=== PATIENT | male | born 1975 | race Caucasian/White ===

== ENCOUNTER 2017-01-25 14:42 | Inpatient (IN) | payer BC, OTHER ==
[~2017-01-25] VITALS: Ht 175.3 cm; Wt 77.1 kg
--- NOTE | 2017-01-25 22:50 | NUR ---
ADMISSION NOTE Ht: 5'9 Wt: 170 lbs WS: T: 98'7; BP: 134/80; HR: 69; RR: 18; RA O2Sat: 100%; Pain level: 5/10 9 Generalized bones and muscles aches, headache). Patient is a 41 year old male admitted to [facility] fn 01/25/17 at 22:50 for Alcohol Withdrawal under medical supervision. , placed on PRN Ativan taper on , and on 5 day Ativan taper starting on 01/26/17. NKA, REGULAR DIET, FULL CODE, FALL AND SEIZURES PRECAUTIONS. No Seizures History. Patient is alert and oriented x4, speech soft and clear, stable gait. CIWA 8. Patient presents with mild anxiety, nervousness, agitation, depression, tremors that can felt, sweating, restlessness. Patient denies N/V, and diarrhea. Patient said, that he had SI/HI 01/23/17. No history of attempt. Doctor Carlos Beckford MD aware. Past Medical History: Anxiety, Depression, Alcohol use, Tobacco use. No PCP. Substance Use: Alcohol: " Started use since 18 years old. Sober from 2011 - 2014. Recently using 12-13 Big Bottles of Beer daily. Last used on 01/24/17". Methamphetamine (smoking): " since 22 years old. Recently - "5 bowls" - daily. Last dosage of 5 bowls on 01/23/17"."5/". Xanax: "Starting on 2006. Recently using 5-6 bars daily. Last dosage was 2 bars on 01/24/17". Patient denies past hospitalizations/treatments. Patient attended AA. Last time was on 01/12/17. Upon initial assessment VS WNL. Patient c/o bones and muscles aches, and headache. Breathing is unlabored and even. Patient denies SOB, and chest pain. Lung Sounds are clear Heart Rate is regular. No murmurs noted by auscultation. BS is active in all x4 quadrants. Last BM was on 01/24/17. Skin is intact, warm and moist by touch. Patient has laceration on Right index finger. No redness, no open wounds. Patient has laceration on the nose. No rudeness, no open wound. Patient was oriented on the floor and in his room. Education was provided with hand out printed and verbal for hand washing techniques, for safety, for smoking cessations, for alcohol withdrawal s/s. Patient return his knowledge by verbalizing understanding. Doctor Carlos Beckford MD notified for patient condition. Waiting order. All needs met. Safety measures in the place by hospital policy: Call light within reach, Bed in the lowest position and locked, padded rails up x2. Will continue to monitor closely. Addendum: 01/26/17 at 0443 by KASANDRA MATA RN VS. No redness.
[2017-01-25 23:29] LABS: *AMPHETAMINE, URINE POSITIVE (NEGATIVE); *BARBITURATE, URINE NEGATIVE (NEGATIVE); *CANNABINOID, URINE NEGATIVE (NEGATIVE); *COCCAINE, URINE NEGATIVE (NEGATIVE); *OPIATE, URINE NEGATIVE (NEGATIVE); *PHENCYCLIDINE SCREEN,URINE NEGATIVE (NEGATIVE)
[2017-01-25] MEDS ORDERED: CLONIDINE HCL 0.1 MG TABLET PO PRN (23:30)
[2017-01-25] MEDS ORDERED: ONDANSETRON 4 MG/2 ML VIAL IM PRN (23:30)
[2017-01-25] MEDS ORDERED: ONDANSETRON ODT 4 MG TAB.RAPDIS SL PRN (23:30)
[2017-01-25] MEDS ORDERED: MAG HYDROX/AL HYDROX/SIMETH 30 ML LIQUID UDC PO PRN (23:30)
[2017-01-25] MEDS ORDERED: LORAZEPAM 2 MG/1 ML VIAL IM PRN (23:30)
[2017-01-25] MEDS ORDERED: MIRALAX 17 GM POWD.PACK PO PRN (23:30)
[2017-01-25] MEDS ORDERED: ACETAMINOPHEN 325 MG TABLET PO PRN (23:30)
[2017-01-25] MEDS ORDERED: DICYCLOMINE HCL 20 MG TABLET PO PRN (23:30)
[2017-01-25] MEDS ORDERED: IBUPROFEN 600 MG TABLET PO PRN (23:30)
[2017-01-25] MEDS ORDERED: LORAZEPAM 1 MG TABLET PO PRN ×2 (23:30)
[2017-01-25] MEDS ORDERED: LOPERAMIDE HCL 2 MG CAPSULE PO PRN ×2 (23:30)
[2017-01-25] MEDS ORDERED: MAGNESIUM HYDROXIDE 30 ML LIQUID UDC PO PRN (23:30)
[2017-01-25] MEDS: diphenhydrAMINE 50 MG CAPSULE PO PRN (23:45)
--- NOTE | 2017-01-25 23:45 | NUR ---
PRN ATIVAN, PRN BENADRYL, PRN TYLENOL ADMINISTRATION Patient c/o increased anxiety, headache 5/10, and insomnia. Patient was assessed. CIWA 8. PRN Ativan PO, PRN Benadryl PO, PRN Tylenol PO was discussed with patient. Patient was educated for actions, adverse reactions, and side effects of Ativan , Benadryl , and Tylenol. Patient return his knowledge back by verbalizing understanding. PRN Ativan PO, PRN Benadryl PO, PRN Tylenol PO administrated as ordered. Patient tolerated well. Safety measures by hospital policy: Call light within reach; Bed in lowest position and locked; padded rails up x2. All needs met. Will continue to monitor closely.
[2017-01-25] MEDS ORDERED: ACETAMINOPHEN 325 MG TABLET ONE (23:47)
[2017-01-25] MEDS ORDERED: diphenhydrAMINE 50 MG CAPSULE ONE (23:48)
[2017-01-25] MEDS ORDERED: LORAZEPAM 1 MG TABLET ONE (23:48)
[2017-01-26] VITALS: BP 121/75
[2017-01-26] MEDS ORDERED: THIAMINE HCL 200 MG/2 ML VIAL IM ONE
--- NOTE | 2017-01-26 00:45 | NUR ---
RE-ASSESSMENT Patient sleeping on his right side. RR 12. Breathing is unlabored and even. PRN Ativan PO, PRN Benadryl PO, PRN Tylenol PO were effective. Safety measures in the place by hospital policy: Call light within reach; Bed in lowest position and locked; padded rails up x2. All needs met. Will continue to monitor closely.
[2017-01-26] MEDS ORDERED: CLON1TAB4 PO (01:53)
[2017-01-26] MEDS ORDERED: ESCI10TA55 PO (01:53)
[2017-01-26] MEDS ORDERED: NICO1PAT44 TD (01:53)
[2017-01-26] MEDS ORDERED: TOLN15SO TP (01:53)
[2017-01-26 04:00] VITALS: BP 111/68
--- NOTE | 2017-01-26 07:05 | NUR ---
Start of Shift Endorsement received from nightshift nurse. Pt is a 41 y/o male admitted for alcohol, xanax and methamphetamine dependence. Pt has been placed on a 5 day Ativan taper. Pt is tolerating the taper well AEB CIWA 3 at 0400. Pt received PRN ativan, Tylenol and Benadryl. Pt reports sleeping 5 hours. VS WNL. Full Code. PT is alert and oriented x4. Pt is in STABLE condition at this time. Remains compliant with medication and diet regimen. All needs have been met, All safety measures in place per hospital policy. Bed in lowest position, side rails up x2, call-light within reach. Will continue to monitor
--- NOTE | 2017-01-26 07:09 | NUR ---
END OF SHIFT NOTE Patient is a 41 year old male admitted to [facility] fn 01/25/17 at 22:50 for Alcohol Withdrawal under medical supervision. , placed on 5 day Ativan taper starting on 01/26/17. NKA, Regular Diet, Full Code, Fall and Seizures Precautions. No Seizures History. Patient is alert and oriented x4, speech soft and clear, stable gait. CIWA decreased from 8 to 3: Patient presented with anxiety, nervousness, agitation, depression, tremors that can felt, sweating, restlessness. Patient denies N/V, and diarrhea. Patient said, that he had SI/HI 01/23/17. No history of attempt. Doctor Carlos Beckford MD aware. Past Medical History: Anxiety, Depression, Alcohol use, Tobacco use. No PCP. Substance Use: Alcohol: "Since 1993. Sober : 2011 - 2014. Recently : " 12-13 Big Bottles of Beer daily. Last used on 01/24/17". Methamphetamine (smoking): " Since 1997. Recently - "5 bowls" - daily. Last dosage of 5 bowls' on 01/23/17". Xanax: "Since 2006. Recently : 5-6 bars daily. Last dosage was 2 bars on 01/24/17". Patient denies past hospitalizations/treatments. Patient's attended AA. Last time was on 01/12/17. VS WNL. Skin is intact, warm and moist by touch. Patient has laceration on Right index finger. No redness, no open wounds. Patient has laceration on the nose. No redness, no open wound. PRN Ativan PO, PRN Benadryl PO, and PRN Tylenol PO were effective. Patent slept 5 hours; Intake 250 ml; Urine x1. All needs met. Safety measures in the place by hospital policy: Call light within reach, Bed in the lowest position and locked, padded rails up x2 . Patient endorsed to day shift nurse. SBAR report given.
[2017-01-26 08:00] VITALS: BP 114/67
[2017-01-26] MEDS: LORAZEPAM 1 MG TABLET PO SCH ×4 (08:23→21:04)
[2017-01-26] MEDS: THIAMINE HCL 100 MG TABLET PO SCH (08:23)
[2017-01-26] MEDS: FOLIC ACID 1 MG TABLET PO SCH (08:23)
[2017-01-26] MEDS: MULTIVITAMINS,THERAPEUTIC TABLET PO SCH (08:24)
[2017-01-26] MEDS ORDERED: TUBERCULIN,PURIF.PROT.DERIV. 5 TU/0.1 ML TEST ID ONE (09:00)
[2017-01-26 10:09] LABS: BASOPHILS % (AUTO) 0.6 % (0.0-2.0); EOSINOPHILS # (AUTO) 0.2 K/uL (0.0-0.7); HEMATOCRIT 45.2 % (36.7-47.1); HEMOGLOBIN 15.7 g/dL (12.5-16.3); LYMPHOCYTES # (AUTO) 1.8 K/uL (20.0-40.0); LYMPHOCYTES % (AUTO) 40.6 % (20.5-51.5); MEAN CORPUSCULAR HEMOGLOBIN 31.4 uug (23.8-33.4); MEAN CORPUSCULAR HGB CONC 35 g/dL (32.5-36.3); MEAN CORPUSCULAR VOLUME 90.7 fL (73.0-96.2); MONOCYTES # (AUTO) 0.5 K/uL (2.0-10.0); MONOCYTES % (AUTO) 10.4 % (0.0-11.0); NEUTROPHILS # (AUTO) 1.9 K/uL (1.8-8.9); NEUTROPHILS % (AUTO) 44.4 % (38.5-71.5); PLATELET COUNT (AUTO) 220 K/uL (152-348); RED BLOOD CELL COUNT(AUTO) 4.99 MIL/uL (4.06-5.63); RED CELL DISTRIBUTION WIDTH 12.5 % (12.1-16.2); WHITE BLOOD COUNT (AUTO) 4.4 K/uL (3.6-10.2)
[2017-01-26 10:11] LABS: ALANINE AMINOTRANSFERASE 33 U/L (16-63); ALBUMIN 3.8 g/dL (3.4-5.0); ALKALINE PHOSPHATASE 55 U/L (50-136); ASPARTATE AMINOTRANSFERASE 30 U/L (15-37); BILIRUBIN,TOTAL 0.8 mg/dL (0.2-1.0); CALCIUM 8.9 mg/dL (8.5-10.1); CARBON DIOXIDE 25 mmol/L (21-32); CHLORIDE 106 mmol/L (98-107); CREATININE 0.9 mg/dL (0.6-1.3); GFR 93 mL/min (>60); GLUCOSE 127 mg/dL (74-106); MAGNESIUM 2.3 mg/dL (1.8-2.4); POTASSIUM 3.6 mmol/L (3.5-5.1); SODIUM SERUM 140 mmol/L (136-145); TOTAL PROTEIN, SERUM 7.5 g/dL (6.4-8.2); UREA NITROGEN, BLOOD 12 mg/dL (7-18)
[2017-01-26 10:16] LABS: THYROID STIMULATING HORMONE 1.725 mIU/mL (0.358-3.740)
[2017-01-26 10:19] LABS: ETHANOL < 3 MG/DL (0-0)
[2017-01-26 10:41] LABS: HIV-1 p24 ANTIGEN NON REACTIVE (NONREACTIVE); HIV-1/2 ANTIBODY NON REACTIVE (NONREACTIVE)
[2017-01-26 12:00] VITALS: BP 128/79
[2017-01-26 16:00] VITALS: BP 122/82
[2017-01-26] MEDS: NEOMY/BACITRAC/POLYMI OINT 28.35 GM TUBE TOP SCH (17:33)
--- NOTE | 2017-01-26 18:54 | NUR ---
End of Shift Endorsement given to nightshift nurse. Pt is a 41 y/o male admitted for alcohol, xanax and methamphetamine dependence. Pt has been placed on a 5 day Ativan taper. Pt is tolerating the taper well AEB CIWA 4 at 1600. Pt did not receive any PRN medications. Encouraged pt to express his feelings regarding the suicide ideations he had expressed during admission. PT denies any and all suicide ideations, reports wanting to succeed in the detox program and become sober. Pt was evaluated by Dr. Solis and the therapist. Pt did not participate in groups or activities, stating that he just wanted to rest and catch up on sleep. Triple antibiotic was administered to the pt to help treat the blister and his 3rd finger on the right hand. Intake: 750ml, Void x1, BM x0. VS WNL. Full Code. PT is alert and oriented x4. Pt is in STABLE condition at this time. Remains compliant with medication and diet regimen. All needs have been met, All safety measures in place per hospital policy. Bed in lowest position, side rails up x2, call-light within reach. Will continue to monitor
--- NOTE | 2017-01-26 18:54 | NUR ---
START SHIFT NOTE Patient is a 41 year old male admitted to [facility] fn 01/25/17 at 22:50 for Alcohol Withdrawal under medical supervision. , placed on 5 day Ativan taper starting on 01/26/17. NKA, REGULAR DIET, FULL CODE, FALL AND SEIZURES PRECAUTIONS. No Seizures History. Past Medical History: Anxiety, Depression, Alcohol use, Tobacco use. Substance Use: Alcohol: " Started use since 18 years old. Sober' from 2011 - 2014. Recently using 12-13 Big Bottles of Beer daily. Last used on 01/24/17". Methamphetamine (smoking): " since 22 years old. Recently - "5 bowls" - daily. Last dosage of 5 bowls on 01/23/17"."02/07". Xanax: "Starting on 2006. Recently using 5-6 bars daily. Last dosage was 2 bars on 01/24/17". Patient denies past hospitalizations/treatments. Patient attended AA. Last time was on 01/12/17. Upon endorsement/assessment: Patient is alert and oriented x4, speech soft and clear, stable gait. CIWA 5. Patient presents with mild anxiety, nervousness, agitation, depression, mild headache, tremors that can felt, sweating, restlessness. Patient denies N/V, and diarrhea. Patient denies SI/HI. VS WNL. Patient Breathing is unlabored and even. Patient denies SOB, and chest pain. Lung Sounds are clear Heart Rate is regular. No murmurs noted by auscultation. BS is active in all x4 quadrants. Last BM was on 01/26/17. Skin is intact, warm and moist by touch. Patient has healed laceration on Right index finger. No redness, no open wounds. Patient has healed laceration on the nose. No redness, no open wound. All needs met. Safety measures in the place by hospital policy: Call light within reach, Bed in the lowest position and locked, padded rails up x2. Will continue to monitor closely.
[2017-01-26 20:00] VITALS: BP 127/78
[2017-01-26] MEDS: ESCITALOPRAM OXALATE 10 MG TABLET PO SCH (21:04)
[2017-01-26] MEDS: GABAPENTIN 300 MG CAPSULE PO SCH (21:04)
[2017-01-27] VITALS: BP 109/51
[2017-01-27 04:00] VITALS: BP 109/56
--- NOTE | 2017-01-27 06:59 | NUR ---
END OF SHIFT NOTE Patient is a 41 year old male admitted to [facility] fn 01/25/17 at 22:50 for Alcohol Withdrawal under medical supervision. , placed on 5 day Ativan taper starting on 01/26/17. NKA, Regular Diet, Full Code, Fall and Seizures Precautions. No Seizures History. Withdrawal symptoms notably improved. CIWA decreased from 5 at 20:00 to 4 at 00:00. Patient presented with anxiety, agitation, tremors that can felt, bone and muscles aches, stomach cramps, sweating, and headache. Patient denies N/V, and diarrhea. Patient denies SI/HI. Vital Sings' stable. Skin is intact, warm and moist by touch. Patient has healed laceration on Right Index finger. No redness, no open wounds. Patient has healed laceration on his nose. No redness, no open wound. Patient encouraged to drink and provided with PO fluids. Patient encouraged to attend activities. Patient remains compliant with therapeutic plan, medications and diet regime Patient slept 8 hours; Intake 2000 ml; Voided x2. All needs met. Safety measures in the place by hospital policy: Call light within reach, Bed in the lowest position and locked, padded rails up x2. Patient endorsed to day shift nurse in stable condition. SBAR report given.
--- NOTE | 2017-01-27 07:44 | NUR ---
START OF SHIFT Received pt AOx4 this AM. Pt states he feels "anxious and a little discombobulated." Pt on 5 day Ativan taper. No PRNs needed per night nurse. Pt slept 9 hours and he states he "was able to sleep well last night after taking the medications." Last COWS 3 CIWA 4 per night nurse. Encouraged pt to attend group and activities today. Encouraged increase in fluid intake to help facilitate detox. Will administer AM medications. Will provide safe and supportive environment and continue to monitor.
[2017-01-27 08:00] VITALS: BP 109/73
[2017-01-27] MEDS: FOLIC ACID 1 MG TABLET PO SCH (08:16)
[2017-01-27] MEDS: THIAMINE HCL 100 MG TABLET PO SCH (08:16)
[2017-01-27] MEDS: MULTIVITAMINS,THERAPEUTIC TABLET PO SCH (08:16)
[2017-01-27] MEDS: LORAZEPAM 1 MG TABLET PO SCH ×3 (08:16→21:02)
[2017-01-27] MEDS: GABAPENTIN 300 MG CAPSULE PO SCH ×2 (08:16→21:02)
[2017-01-27] MEDS: NEOMY/BACITRAC/POLYMI OINT 28.35 GM TUBE TOP SCH ×2 (08:19→16:22)
[2017-01-27 12:00] VITALS: BP 130/76
[2017-01-27 14:06] LABS: HCV AB <0.1 s/co ratio (0.0-0.9); HEPATITIS B CORE AB, IgM Negative (Negative); HEPATITIS B SURFACE AG Negative (Negative)
[2017-01-27 16:00] VITALS: BP 126/68
--- NOTE | 2017-01-27 18:35 | NUR ---
END OF SHIFT Pt continues on 5 day Ativan taper and tolerating well. No PRNs needed during shift. Pt isolated self in room most of shift and slept a lot of the day. Last CIWA 4 COWS 3. Pt presents restless and mildly anxious. Pt continues on seizure and fall precautions with no hx of seizures. Pt is compliant with medications and tx plan. All needs have been met. All safety measures in place. Bed locked and in lowest position with call delgadillo within reach. Will endorse to night nurse.
--- NOTE | 2017-01-27 19:30 | NUR ---
START OF SHIFT-- Pt is a 41 y/o male admitted for alcohol, xanax and methamphetamine dependence. Pt has been placed on a 5 day Ativan taper. Pt is tolerating the taper well ,no A/R reported.VS WNL. Full Code. PT is alert and oriented x 4.PMH of anxiety and depression. NKA. Pt is in STABLE condition at this time. Remains compliant with medication and diet regimen. All needs have been met, All safety measures in place per hospital policy. Bed in lowest position, side rails up x2, call-light within reach. Will continue to monitor.
[2017-01-27 20:00] VITALS: BP 124/74
--- NOTE | 2017-01-27 20:15 | NUR ---
START OF SHIFT Received report from day shift nurse. Pt attended a group meeting and returned to his room after. He is a 41 yo male admitted to [facility] on 01/25 for ETOH withdrawal. He is A&O x4 and ambulatory. NKA, full code, regular diet. He has a PMH of anxiety and depression. On admission he reported drinking 12-13 bottles of beer per day, Xanax 5-6 bars per day, clonazepam 1 mg per day, and methamphetamine 5 bowls per day. Pt started a 5 day Ativan taper on 01/26. He has a flat affect, moist skin, and reports feeling anxious. Taper is due tonight. Fall and seizure precautions in place. Bed is down with call light in reach. Addendum: 01/29/17 at 0345 by CHULA RODRÍGUEZ RN Incorrect date of note. Note documented with correct date and time.
[2017-01-27] MEDS: ESCITALOPRAM OXALATE 10 MG TABLET PO SCH (21:03)
[2017-01-27] MEDS: diphenhydrAMINE 50 MG CAPSULE PO PRN (23:30)
--- NOTE | 2017-01-27 23:31 | NUR ---
PRN MED-- PRN BENADRYL GIVEN ORDERED FOR C/O INSOMNIA PER PT REQUEST.WILL MONITOR.
[2017-01-28] VITALS: BP 122/68
--- NOTE | 2017-01-28 00:30 | NUR ---
PRN EFFECTIVE.PT SEEN RESTING IN BED WITH EYES CLOSED.NO S/S OF DISTRESS NOTED,WILL BE MONITORED FOR SAFETY.
[2017-01-28 04:00] VITALS: BP 109/70
--- NOTE | 2017-01-28 06:48 | NUR ---
END OF SHIFT-- Pt is a 41 y/o male admitted for alcohol, xanax and methamphetamine dependence. Pt has been placed on a 5 day Ativan taper. Pt is tolerating the taper well ,no A/R reported.VS WNL. Full Code. PT is alert and oriented x4.PMH of anxiety and depression. NKA. Pt is in STABLE condition at this time. Remains compliant with medication and diet regimen. All needs have been met, All safety measures in place per hospital policy.PRN Benadryl was given for insomnia; pt slept 9 hrs; fluid intake was 1000 mls,voided x 2. Bed in lowest position, side rails up x2, call-light within reach. Will endorse care to day shift.
--- NOTE | 2017-01-28 07:42 | NUR ---
START OF SHIFT Received pt AOx4 this AM. Pt presents with guarded affect and he appears restless upon talking to him. Pt states he "slept pretty good last night." Pt on 5 day Ativan taper. PRN Benadryl given last shift with effectiveness per night nurse. Pt slept 9 hours. Last COWS 2 CIWA 2 per night nurse. Encouraged pt to attend group and activities today. Encouraged increase in fluid intake to help facilitate detox. Will administer AM medications. Will provide safe and supportive environment and continue to monitor.
[2017-01-28 08:00] VITALS: BP 122/66
[2017-01-28] MEDS: MULTIVITAMINS,THERAPEUTIC TABLET PO SCH (08:47)
[2017-01-28] MEDS: FOLIC ACID 1 MG TABLET PO SCH (08:47)
[2017-01-28] MEDS: THIAMINE HCL 100 MG TABLET PO SCH (08:47)
[2017-01-28] MEDS: NEOMY/BACITRAC/POLYMI OINT 28.35 GM TUBE TOP SCH ×2 (08:47→17:00)
[2017-01-28] MEDS: LORAZEPAM 1 MG TABLET PO SCH ×4 (08:47→21:30)
[2017-01-28] MEDS: GABAPENTIN 300 MG CAPSULE PO SCH ×2 (08:47→21:30)
[2017-01-28 12:00] VITALS: BP 119/68
[2017-01-28 16:00] VITALS: BP 133/85
--- NOTE | 2017-01-28 18:55 | NUR ---
END OF SHIFT Pt continues on 5 day Ativan taper and tolerating well. No PRNs needed during shift. Pt isolated self in room most of shift. Last CIWA 2 COWS 2. Pt presents restless and mildly anxious. Pt continues on seizure and fall precautions with no hx of seizures. Pt is compliant with medications and tx plan. Vital signs stable. All needs have been met. All safety measures in place. Bed locked and in lowest position with call delgadillo within reach. Will endorse to night nurse.
[2017-01-28 20:00] VITALS: BP 127/85
--- NOTE | 2017-01-28 20:15 | NUR ---
START OF SHIFT Received report from day shift nurse. Pt attended a group meeting and returned to his room after. He is a 41 yo male [facility] for ETOH withdrawal. He is A&O x4 and ambulatory. NKA, full code, regular diet. He has a PMH of anxiety and depression. On admission he reported drinking 12-13 bottles of beer per day, Xanax 5-6 bars per day, clonazepam 1 mg per day, and methamphetamine 5 bowls per day. Pt started a 5 day Ativan taper on 01/26. He has a flat affect, moist skin, and reports feeling anxious. Taper is due tonight. Fall and seizure precautions in place. Bed is down with call light in reach.
--- NOTE | 2017-01-28 20:32 | NUR ---
PRN Benadryl administration Pt reports inability to sleep. PRN Benadryl administered.
[2017-01-28] MEDS: ESCITALOPRAM OXALATE 10 MG TABLET PO SCH (21:30)
[2017-01-28] MEDS: diphenhydrAMINE 50 MG CAPSULE PO PRN (21:31)
--- NOTE | 2017-01-28 22:32 | NUR ---
PRN Benadryl reassessment PRN Benadryl effective. Pt is lying in bed resting with eyes closed. Respirations even and unlabored. Bed is down with call light in reach.
[2017-01-29] VITALS: BP 110/62
[2017-01-29 04:00] VITALS: BP 104/60
--- NOTE | 2017-01-29 07:11 | NUR ---
END OF SHIFT Report provided to day shift nurse. Pt is lying in bed resting. He is a 41 yo male admitted to [facility] on 01/25 for ETOH withdrawal. He is A&O x4 and ambulatory. Pt has NKA, is full code status, and on a regular diet. He has a PMH of anxiety and depression. On admission he reported drinking 12-13 bottles of beer per day, Xanax 5-6 bars per day, clonazepam 1 mg for one month, and methamphetamine 5 bowls per day. He started a 5 day Ativan taper on 01/26. Pt has a right index finger laceration and is receiving topical abx. PRN Benadryl administered for sleep. Last CIWA was 1. He drank 1300mL and slept for 8 hours. Safety measures in place.
[2017-01-29 08:00] VITALS: BP 108/69
--- NOTE | 2017-01-29 08:10 | NUR ---
START OF SHIFT Received pt AOx4 this AM. Pt presents with anxious mood. Pt states he "slept pretty good last night." Pt on 5 day Ativan taper. No PRns given per night nurse. Pt slept 8 hours. Last CIWA 3 per night nurse. Encouraged pt to attend group and activities today.Encouraged pt to shower today Encouraged increase in fluid intake to help facilitate detox. Will administer AM medications. Will provide safe and supportive environment and continue to monitor.
[2017-01-29] MEDS: FOLIC ACID 1 MG TABLET PO SCH (09:04)
[2017-01-29] MEDS: THIAMINE HCL 100 MG TABLET PO SCH (09:04)
[2017-01-29] MEDS: MULTIVITAMINS,THERAPEUTIC TABLET PO SCH (09:04)
[2017-01-29] MEDS: LORAZEPAM 1 MG TABLET PO SCH ×3 (09:04→20:49)
[2017-01-29] MEDS: GABAPENTIN 300 MG CAPSULE PO SCH ×3 (09:04→20:49)
[2017-01-29] MEDS: NEOMY/BACITRAC/POLYMI OINT 28.35 GM TUBE TOP SCH ×2 (09:04→16:47)
[2017-01-29 12:00] VITALS: BP 130/82
[2017-01-29 16:00] VITALS: BP 128/81
--- NOTE | 2017-01-29 18:35 | NUR ---
END OF SHIFT NOTE Pt continues on 5 day Ativan taper and tolerating well. No PRNs needed during shift. Pt had brighter mood and affect this shift. Pt attended groups today. Last CIWA 1. Pt continues on seizure and fall precautions with no hx of seizures. Pt is compliant with medications and tx plan. Vital signs stable. All needs have been met. All safety measures in place. Pt currently resting in bed with bed locked and in lowest position with call delgadillo within reach. Will endorse to night nurse.
[2017-01-29 20:00] VITALS: BP 126/70
--- NOTE | 2017-01-29 20:00 | NUR ---
START OF SHIFT Received report from day shift nurse. Pt attended a group meeting and returned to his room after. He is a 41 yo male admitted to [facility] on 01/25 for ETOH withdrawal. He is A&O x4 and ambulatory. NKA, full code, regular diet. He has a PMH of anxiety and depression. On admission he reported drinking 12-13 bottles of beer per day, Xanax 5-6 bars per day, clonazepam 1 mg per day, and methamphetamine 5 bowls per day. Pt started a 5 day Ativan taper on 01/26. He reports anxiety and has moist skin. Taper is due tonight. Fall and seizure precautions in place. Bed is down with call light in reach.
[2017-01-29] MEDS: ESCITALOPRAM OXALATE 10 MG TABLET PO SCH (20:49)
[2017-01-30] VITALS: BP 110/67
[2017-01-30] MEDS: diphenhydrAMINE 50 MG CAPSULE PO PRN (00:10)
--- NOTE | 2017-01-30 00:12 | NUR ---
PRN Benadryl administration Pt reports inability to sleep. PRN Benadryl administered.
--- NOTE | 2017-01-30 01:12 | NUR ---
PRN Benadryl reassessment PRN Benadryl effective. Pt is lying in bed resting with eyes closed. Respirations even and unlabored. Safety measures in place.
--- NOTE | 2017-01-30 04:00 | NUR ---
0400 Vital signs refused.CIWA deferred. Pt refused to be woken for 0400 vitals. Respirations even and unlabored. CIWA deferred as they are ordered Q4H while awake.
--- NOTE | 2017-01-30 07:20 | NUR ---
Start of Shift Report from night nurse: pt is a 41 y/o male her for Etoh r/t 12-13 bottles of beer/d, methamphetamine 5 bowel smoked, Benzo r/t Xanax 5-6 bars/d and Clonazepam 1mg PO/d; 5 day Ativan taper ordered. Pt is a full code, regular diet, NKA, fall and seizure precautions ordered. HHx: Anxiety, depression, relapse and smoker. V/S stable. Skin is not intact with right index finger laceration and topical Atbx ointment ordered. PRN Benadryl given last night for sleep. Last CIWA 3. Night nurse recommended to f/u with psychiatrist re: Celexa vs Lexapro medications. Pt is asleep in room. Will cont. to monitor the pt.
--- NOTE | 2017-01-30 07:25 | NUR ---
END OF SHIFT 3 Report provided to day shift nurse. Pt is lying in bed resting. He is a 41 [facility]. He is A&O x4 and ambulatory. NKA, full code, regular diet. He has a PMH of anxiety and depression. On admission he reported drinking 12-13 bottles of beer per day, Xanax 5-6 bars per day, clonazepam 1 mg per day, and methamphetamine 5 bowls per day. Pt started a 5 day Ativan taper on 01/26. He continues to have anxiety for which Ativan taper has been effective. PRN Benadryl administered for sleep. Last CIWA was 3. He drank 500mL and slept for 7 hours. Fall and seizure precautions in place. Bed is down with call light in reach.
[2017-01-30 08:00] VITALS: BP 107/61
[2017-01-30] MEDS: NICOTINE 21 MG/24HR PATCH TD SCH (09:00)
[2017-01-30] MEDS: GABAPENTIN 300 MG CAPSULE PO SCH ×3 (09:45→21:18)
[2017-01-30] MEDS: LORAZEPAM 1 MG TABLET PO SCH ×2 (09:45→21:18)
[2017-01-30] MEDS: THIAMINE HCL 100 MG TABLET PO SCH (09:45)
[2017-01-30] MEDS: NEOMY/BACITRAC/POLYMI OINT 28.35 GM TUBE TOP SCH ×2 (09:46→15:38)
[2017-01-30] MEDS: MULTIVITAMINS,THERAPEUTIC TABLET PO SCH (09:46)
[2017-01-30] MEDS: FOLIC ACID 1 MG TABLET PO SCH (09:46)
[2017-01-30 12:00] VITALS: BP 130/73
[2017-01-30] MEDS: HYDROXYZINE PAMOATE 25 MG CAPSULE PO PRN (15:38)
--- NOTE | 2017-01-30 15:45 | NUR ---
PRN Medication Adminsitration Pt is in room with restless feet and c/o anxiety; PRN Vistaril 25mg given as ordered. Will reassess in 1H.
[2017-01-30 16:00] VITALS: BP 127/72
--- NOTE | 2017-01-30 16:45 | NUR ---
Reassessment Pt returned from dinner and is now resting in his bed watching T.V and relaxed with no restless legs present or other non-verbal s/sx of anxiety present; Vistaril is effective. Will cont. to monitor the pt.
--- NOTE | 2017-01-30 19:03 | NUR ---
End of Shift Report to night nurse: pt is a 41 y/o male her for Etoh r/t 12-13 bottles of beer/d, methamphetamine 5 bowel smoked, Benzo r/t Xanax 5-6 bars/d and Clonazepam 1mg PO/d; 5 day Ativan taper ordered. Pt is a full code, regular diet, NKA, fall and seizure precautions ordered. HHx: Anxiety, depression, relapse and smoker. V/S stable. Skin is not intact with right index finger laceration and topical Atbx ointment ordered. No PRN Vistaril given at 1540pm. Endorsed to night nurse to complete pt education. Pt denies chest pain, no SOB noted. No hallucinations, delusions or suicidal ideations noted. No new orders during my shift. Pt attended some group therapy and activities during my shift. Last CIWA 7.
[2017-01-30] MEDS ORDERED: busPIRone 5 MG TABLET PO SCH (19:15)
[2017-01-30 20:00] VITALS: BP 126/67
--- NOTE | 2017-01-30 20:10 | NUR ---
START OF SHIFT Received report from day shift nurse. Pt attended a group meeting and returned to his room after. He is a 41 yo male admitted to [facility] on 01/25 for ETOH withdrawal. He is A&O x4 and ambulatory. NKA, full code, regular diet. He has a PMH of anxiety and depression. On admission he reported drinking 12-13 bottles of beer per day, Xanax 5-6 bars per day, clonazepam 1 mg per day, and methamphetamine 5 bowls per day. Pt started a 5 day Ativan taper on 01/26. He reports feeling anxious and has racing thoughts. Taper is due tonight. Fall and seizure precautions in place. Bed is down with call light in reach.
[2017-01-30] MEDS: ESCITALOPRAM OXALATE 10 MG TABLET PO SCH (21:18)
--- NOTE | 2017-01-31 | NUR ---
0000 Vital signs refused.CIWA deferred. Pt refused to be woken for 0000 vitals. Respirations even and unlabored. CIWA deferred as they are ordered Q4H while awake.
--- NOTE | 2017-01-31 04:00 | NUR ---
0400 Vital signs refused. CIWA deferred. Pt refused to be woken for 0400 vitals. Respirations even and unlabored. CIWA deferred as they are ordered Q4H while awake.
--- NOTE | 2017-01-31 07:15 | NUR ---
Start of Shift Report from night nurse: pt is a 41 y/o male her for Etoh r/t 12-13 bottles of beer/d, methamphetamine 5 bowel smoked, Benzo r/t Xanax 5-6 bars/d and Clonazepam 1mg PO/d; 5 day Ativan taper ordered. Pt is a full code, regular diet, NKA, fall and seizure precautions ordered. HHx: Anxiety, depression, relapse and smoker. V/S stable. Skin is not intact with right index finger laceration and topical Atbx ointment with band aid bandage applied ordered. No PRN's given last night. No new orders or recommendations endorse to me. Last CIWA 4. Pt is asleep in room. Will cont. to monitor the pt.
--- NOTE | 2017-01-31 07:20 | NUR ---
END OF SHIFT Report provided to day shift nurse. Pt is lying in bed resting. He is a 41 yo male admitted to [facility] on 01/25 for ETOH withdrawal. He is A&O x4 and ambulatory. NKA, full code, regular diet. He has a PMH of anxiety and depression. On admission he reported drinking 12-13 bottles of beer per day, Xanax 5-6 bars per day, clonazepam 1 mg per day, and methamphetamine 5 bowls per day. Pt started a 5 day Ativan taper on 01/26. Pt continues to have anxiety regarding his future after treatment. Provided support. No PRN medications administered. Last CIWA was 4. He drank 500mL and slept for 8 hours. Fall and seizure precautions in place. Bed is down with call light in reach.
[2017-01-31 08:00] VITALS: BP 109/60
[2017-01-31] MEDS: NICOTINE 21 MG/24HR PATCH TD SCH (09:00)
[2017-01-31] MEDS: FOLIC ACID 1 MG TABLET PO SCH (09:39)
[2017-01-31] MEDS: GABAPENTIN 300 MG CAPSULE PO SCH ×3 (09:39→21:14)
[2017-01-31] MEDS: THIAMINE HCL 100 MG TABLET PO SCH (09:39)
[2017-01-31] MEDS: HYDROXYZINE PAMOATE 25 MG CAPSULE PO PRN ×2 (09:39→22:52)
[2017-01-31] MEDS: MULTIVITAMINS,THERAPEUTIC TABLET PO SCH (09:39)
--- NOTE | 2017-01-31 09:40 | NUR ---
PRN Medication Administration, Non-Medication Administration, New Orders Pt is in room lying in bed with restless legs and feet present and states that he has moderate anxiety; PRN Vistaril 25mg given as ordered. Pt refused Nicotine patch since he state that he wants to smoke today. New Orders for the pt to be discharged tomorrow. Will reassess in 1H.
[2017-01-31] MEDS: NEOMY/BACITRAC/POLYMI OINT 28.35 GM TUBE TOP SCH ×2 (09:41→17:00)
--- NOTE | 2017-01-31 10:30 | NUR ---
Reassessment Pt is resting in bed and no restlessness or anxiety noted, so I encouraged the pt to attend the group therapy and activities today; Vistaril is effective. Will cont. to monitor
[2017-01-31 12:00] VITALS: BP 121/80
[2017-01-31 15:02] LABS: *AMPHETAMINE, URINE NEGATIVE (NEGATIVE); *BARBITURATE, URINE NEGATIVE (NEGATIVE); *CANNABINOID, URINE NEGATIVE (NEGATIVE); *COCCAINE, URINE NEGATIVE (NEGATIVE); *OPIATE, URINE NEGATIVE (NEGATIVE); *PHENCYCLIDINE SCREEN,URINE NEGATIVE (NEGATIVE)
[2017-01-31 16:00] VITALS: BP 117/68
[2017-01-31] MEDS ORDERED: MULT-24 PO (18:22)
[2017-01-31] MEDS ORDERED: THIA100T13 PO (18:22)
[2017-01-31] MEDS ORDERED: Folic Acid PO (18:22)
[2017-01-31] MEDS ORDERED: NICO1PAT28 TD (18:22)
[2017-01-31] MEDS ORDERED: DIPH50CA37 PO (18:22)
[2017-01-31] MEDS ORDERED: HYDR-3895 PO (18:22)
[2017-01-31] MEDS ORDERED: Gabapentin PO (18:22)
--- NOTE | 2017-01-31 19:15 | NUR ---
End of Shift Report to night nurse: pt is a 41 y/o male here for Etoh r/t 12-13 bottles of beer/d, methamphetamine 5 bowel smoked, Benzo r/t Xanax 5-6 bars/d and Clonazepam 1mg PO/d; 5 day Ativan taper ordered. Pt is a full code, regular diet, NKA, fall and seizure precautions ordered. HHx: Anxiety, depression, relapse and smoker. V/S stable. Skin is not intact with right index finger laceration and topical Atbx ointment ordered. PRN given at 0939am for anxiety. Pt denies chest pain, no SOB noted. No hallucinations, delusions or suicidal ideations noted. New orders for the pt to get d/c'd tomorrow with UDS obtained and endorsed to night nurse to f/u with results. Pt did not attended group therapy and activities during my shift. Last CIWA 2.
[2017-01-31 20:00] VITALS: BP 124/72
--- NOTE | 2017-01-31 20:00 | NUR ---
2000 Patient received awake, alert and sitting up on his bedside. Patient responds to nurse's greeting and introduction with a smile, good eye contact and, " Hi and how are you doing?" Patient is oriented to person, place, day, date, time and his personal situation. Patient's color is pink and his skin is warm, dry and intact. Patient's lung sounds are clear bilaterally and active bowel sounds are noted X 4 abdominal Quads, per auscultation. Patient states that he has been consistently going to all [facility] groups, following his medication regimen as ordered and eating his regular diet and taking fluids ad bria, with no gastric issues. Patient is denying any pain or other discomforts at this time and he voices no requests for anything. Patient does state that he is being discharged tomorrow to [facility] and he is feeling some anxiety about this, though he states that he is satisfied so far with the way his journey to sobriety has been going. Patient allowed to ventilate his feelings and positive encouragement then given to him, along with praise for his progress made thus far in detox. Vital signs are: 97.8-68-16 124/72, O2 Sat 98%, CIWA 4. Fall/Seizure precautions continue. Patient was admitted on 01/25/17 for: Alcohol, Methamphetamine, Xanax, Klonopin withdrawal and 5-Day Ativan medication taper has been completed. Patient is friendly, cooperative and verbally appropriate when interacting with nurse, though mood/affect is a bit guarded and anxious at this time. Bed is locked and in lowest position, bed rails are up X 2 and call light within patient's easy reach.
--- NOTE | 2017-01-31 20:15 | NUR ---
2014 Patient wheeled back into her room # 327 without incident, accompanied by staff, and assisted into her bed. Patient moves all her extremities fully WNL, though a bit slowly. Patient's color is pink and her skin is warm, very slightly moist and intact. 2 Tiny, slightly raised bruised areas noted at right antecubital area noted and patient is presently on Q12 hr Vibramycin 100 mg p.o. Lung sounds are clear bilaterally and active bowel sounds are noted X 4 abdominal Quads, per auscultation. Patient states that she is eating a little of her regular diet and she is taking fluids ad lb with no real gastric issues so far. Patient moves all her extremities fully WNL, though a bit slowly. Vital signs are: 99.4-85-16 116/71, O2 Sat 98%, COWS 4, CIWA 5. Patient states, " I know where I am and who I am. I just basically feel like s--t". Patient answers nurse's assess questions appropriately, though with some repeating and prompting from nurse, however she does appear somewhat sedated, as she can not maintain eye contact well, her words are slow and she nods her head frequently and closes her eyes, while nurse is talking to her. Fall/Seizure precautions continue and 1 to 1 staff at patient's bedside for patient safety. Patient was admitted on 01/30/17 for: Xanax, Heroin and Methamphetamine withdrawal and she is currently on a 5-Day Valium medication taper and 5-Day Subutex medication taper, which she seems to be tolerating so far. Patient is cooperative, then uncooperative with nurse assess and questions and she becomes easily irritated, however she is easily redirected to appropriate behavior, and then patient will state to nurse, " I'm sorry for talking to you that way" " I'm sorry for that". Bed is locked and in lowest position, padded rails up X 2 and call light at patient's side.
[2017-01-31] MEDS: ESCITALOPRAM OXALATE 10 MG TABLET PO SCH (21:13)
[2017-01-31] MEDS: diphenhydrAMINE 50 MG CAPSULE PO PRN (22:52)
--- NOTE | 2017-01-31 22:52 | NUR ---
PRN MEDICATIONS: Prn Benadryl 50 mg p.o. given per request for sleep medication and Prn Vistaril 25 mg p.o. given for c/o anxiety.
--- NOTE | 2017-01-31 23:52 | NUR ---
REASSESSMENT PRN MEDICATIONS: Patient is sleeping comfortably with eyes closed and respirations quiet, even and unlabored at 12.
--- NOTE | 2017-02-01 | NUR ---
Patient refuses to be awakened for V/S to be done at this time.
--- NOTE | 2017-02-01 04:00 | NUR ---
Patient refuses to be awakened for V/S to be done at this time.
--- NOTE | 2017-02-01 06:30 | NUR ---
0630 Patient slept a total of 5.5 hours and he was up to the bathroom for 3 voids and no stools. Total intake was 500 ml p.o. Prn medications given noted separately per floor protocol. Patient is presently resting comfortably with eyes closed and respirations quiet, even, unlabored at 12. Patient is in stable condition at this time.
--- NOTE | 2017-02-01 07:00 | NUR ---
Start of Shift Notes: Received patient in his room. Alert and oriented x 4. Verbally responsive. Respirations even and unlabored. No SOB noted. Skin warm and dry to touch. Abdomen soft and non-distended. No complains of abdominal discomfort noted. No complains of N/V/D or constipation noted. Voids indepdendently. Ambulatory ad bria with steady gait. Patient is a 41 year old male admitted for ETOh and BZO dependence who was placed on a 5-day Ativan taper but has been completed. Patient has past medical hx of anxiety, and depression. Patient will be discharging today. UDS in and resulted. Educated patient on his current plan of care, medication regimen and the discharge process. All needs met and attended. Will continue to monitor.
[2017-02-01 08:00] VITALS: BP 105/66
[2017-02-01 08:56] VITALS: BP 105/66
[2017-02-01] MEDS: THIAMINE HCL 100 MG TABLET PO SCH (08:56)
[2017-02-01] MEDS: FOLIC ACID 1 MG TABLET PO SCH (08:56)
[2017-02-01] MEDS: MULTIVITAMINS,THERAPEUTIC TABLET PO SCH (08:56)
[2017-02-01] MEDS: NEOMY/BACITRAC/POLYMI OINT 28.35 GM TUBE TOP SCH (08:56)
[2017-02-01] MEDS: GABAPENTIN 300 MG CAPSULE PO SCH (08:56)
--- NOTE | 2017-02-01 08:56 | NUR ---
Clonidine 0.1mg PO given: Patient noted with anxiety and chills, mild sweats noted. COWS 3. Non-pharmacological interventions were provided. Medicated patient with Clonidine 0.1mg PO as ordered. Will monitor for effectiveness.
[2017-02-01] MEDS: NICOTINE 21 MG/24HR PATCH TD SCH (08:57)
--- NOTE | 2017-02-01 09:00 | NUR ---
Discharge Instructions: Education provided regarding his discharge instructions. Patient verbalized good understanding. UDS, CXR, prescription from psych MD and primary MD, were all placed inside his duffer bag with all returned medications and valuables. All clothing were placed inside a duffel bag. Patient is in stable condition. Appears anxious due to the discharge process.
--- NOTE | 2017-02-01 09:45 | NUR ---
Re-assessment: Per patient, PRN Clonidine were effective in reducing anxiety, chills, and sweats. COWS 1
--- NOTE | 2017-02-01 09:48 | NUR ---
Discharged: Patient left the unit at this time in stable condition. No s/s of withdrawal noted. VS stable. Escorted off the unit with male BHTs and picked up by [facility] to be transported to [facility].
[2017-02-04 05:06] LABS: *AMPHETAMINE Positive (.); *METHAMPHETAMINE Positive (.)
== END 2017-02-01 09:48 | disposition other institution (70) | DRG 895 ==
LOC: SRC 22:02
PROVIDERS: ADMIT Internal Medicine; ATTEND Internal Medicine
PROC: HZ2ZZZZ Detoxification Services for Substance Abuse Treatment (ICD-10-PCS; principal; 2017-01-25)
PROC: HZ31ZZZ Individual Counseling for Substance Abuse Treatment, Behavioral (ICD-10-PCS; 2017-01-26)
PROC: HZ41ZZZ Group Counseling for Substance Abuse Treatment, Behavioral (ICD-10-PCS; 2017-01-28)
DX: F10.230 Alcohol dependence with withdrawal, uncomplicated (principal); F33.1 Major depressive disorder, recurrent, moderate; F15.20 Other stimulant dependence, uncomplicated; F13.230 Sedative, hypnotic or anxiolytic dependence with withdrawal, uncomplicated; Y90.9 Presence of alcohol in blood, level not specified; Z81.8 Family history of other mental and behavioral disorders; Z81.1 Family history of alcohol abuse and dependence; Z81.3 Family history of other psychoactive substance abuse and dependence; F41.9 Anxiety disorder, unspecified; F17.210 Nicotine dependence, cigarettes, uncomplicated
CPT/HCPCS: 36415; 70030-TC; 71010; 80307; 80324; 83735; 84443; 85025; 86592; 86705; 86803; 87340; 87806; G6040-TC; J3411; Q0163